=== PATIENT | female | born 1980 | race American Indian/Alaskan Native ===

== ENCOUNTER 2016-11-22 17:22 | Emergency (ER) | payer OTHER ==
[2016-11-22] MEDS ORDERED: FLEXERIL PO ONE (19:34)
[2016-11-22] MEDS ORDERED: TORADOL IM ONE (19:34)
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
[2016-11-22 20:49] VITALS: BP 119/82
== END 2016-11-22 20:48 | disposition home or self-care (01) ==
LOC: ED 17:22
DX: S46.912A Strain of unspecified muscle, fascia and tendon at shoulder and upper arm level, left arm, initial encounter (principal); V89.2XXA Person injured in unspecified motor-vehicle accident, traffic, initial encounter; Y93.89 Activity, other specified; Y99.9 Unspecified external cause status; Y92.410 Unspecified street and highway as the place of occurrence of the external cause
CPT/HCPCS: 96372; 99282; J1885

== ENCOUNTER 2018-03-11 08:23 | Emergency (ER) | payer OTHER ==
[2018-03-11 08:39] VITALS: BP 121/74
--- NOTE | 2018-03-11 09:16 | XRay Report ---
LEFT ANKLE, 3 views: History: left ankle pain, trauma. Bone mineralization is normal. No acute osseous abnormality or joint pathology is identified. The soft tissues are unremarkable. IMPRESSION: Normal study.
--- NOTE | 2018-03-11 10:28 | Emergency Department Report ---
ED Extremity Problem HPI - General Chief complaint: Extremity Injury, Lower Stated complaint: LFT ANKLE PAIN Time Seen by Provider: 03/11/18 09:50 Source: patient Mode of arrival: Wheelchair Limitations: No Limitations - History of Present Illness Initial comments: She is a 38-year-old female who was running at work and came down on her left ankle wrong and felt intense pain. Patient says the pain is a 10 severity is worse when she tries to bear weight and move the ankle. She feels some lateral swelling. Patient here for evaluation. Patient did not hear a popping sound Severity scale (0 -10): 7 Quality: aching Consistency: constant - Related Data Previous Rx's Medication Instructions Recorded Last Taken Type Cyclobenzaprine [Flexeril 10 MG 10 mg PO QHS #24 tablet 11/22/16 Unknown Rx TAB] Ibuprofen [Motrin] 800 mg PO Q8HR PRN #30 tablet 11/22/16 Unknown Rx HYDROcodone/APAP 5-325 [[place] 1 each PO Q6HR PRN #15 tablet 03/11/18 Unknown Rx 5/325] Ibuprofen [Motrin] 600 mg PO Q8H PRN #20 tablet 03/11/18 Unknown Rx Allergies Allergy/AdvReac Type Severity Reaction Status Date / Time No Known Allergies Allergy Unverified 07/10/13 13:38 ED Review of Systems ROS: Stated complaint: LFT ANKLE PAIN Other details as noted in HPI Comment: All other systems reviewed and negative ED Past Medical Hx - Past Medical History Previous Medical History?: No - Surgical History Past Surgical History?: No - Social History Smoking Status: Never Smoker Substance Use Type: None - Medications Home Medications: Home Medications Medication Instructions Recorded Confirmed Last Taken Type Cyclobenzaprine [Flexeril 10 MG 10 mg PO QHS #24 tablet 11/22/16 Unknown Rx TAB] Ibuprofen [Motrin] 800 mg PO Q8HR PRN #30 tablet 11/22/16 Unknown Rx HYDROcodone/APAP 5-325 [[place] 1 each PO Q6HR PRN #15 tablet 03/11/18 Unknown Rx 5/325] Ibuprofen [Motrin] 600 mg PO Q8H PRN #20 tablet 03/11/18 Unknown Rx ED Physical Exam - General Limitations: No Limitations General appearance: alert, in no apparent distress - Head Head exam: Present: atraumatic, normocephalic - Eye Eye exam: Present: normal appearance - ENT ENT exam: Present: mucous membranes moist - Neck Neck exam: Present: normal inspection - Respiratory Respiratory exam: Present: normal lung sounds bilaterally. Absent: respiratory distress, wheezes, rales, rhonchi - Cardiovascular Cardiovascular Exam: Present: regular rate, normal rhythm. Absent: systolic murmur, diastolic murmur, rubs, gallop - GI/Abdominal GI/Abdominal exam: Present: soft, normal bowel sounds. Absent: distended, tenderness, guarding - Extremities Exam Extremities exam: Present: normal inspection, tenderness (she has tenderness to the lateral malleolus at the left lower extremity), joint swelling. Absent: full ROM - Back Exam Back exam: Present: normal inspection - Neurological Exam Neurological exam: Present: alert, oriented X3 - Psychiatric Psychiatric exam: Present: normal affect, normal mood - Skin Skin exam: Present: warm, dry, intact, normal color. Absent: rash ED Course Vital Signs 03/11/18 08:33 Temperature 98.6 F Pulse Rate 67 Respiratory 16 Rate Blood Pressure 121/74 O2 Sat by Pulse 100 Oximetry ED Medical Decision Making - Radiology Data X-ray left ankle shows no acute bony abnormality. There is some mild soft tissue swelling present. - Medical Decision Making Patient does appear to have had a ankle sprain. Patient will be placed in an Aircast with Suraj wrap. Crutches will be given. Patient given information on rice therapy he'll be discharged home with pain meds and follow up with orthopedics. Critical care attestation.: If time is entered above; I have spent that time in minutes in the direct care of this critically ill patient, excluding procedure time. ED Disposition Clinical Impression: Ankle sprain Qualifiers: Encounter type: initial encounter Involved ligament of ankle: unspecified ligament Laterality: left Qualified Code(s): S93.402A - Sprain of unspecified ligament of left ankle, initial encounter Disposition: - TO HOME OR SELFCARE Is pt being admited?: No Does the pt Need Aspirin: No Condition: Stable Instructions: Ankle Sprain (ED), RICE Therapy (ED) Referrals: KRISH WOLFF MD [Staff Physician] - 3-5 Days Forms: Work/School Release Form(ED) Time of Disposition: 10:29
[2018-03-11] MEDS ORDERED: MOTRIN PO ONE (10:30)
[2018-03-11] MEDS ORDERED: NORCO 5/325 PO ONE (10:30)
== END 2018-03-11 10:52 | disposition home or self-care (01) ==
LOC: ED 08:23
DX: S93.402A Sprain of unspecified ligament of left ankle, initial encounter (principal); X50.1XXA Overexertion from prolonged static or awkward postures, initial encounter; Y93.02 Activity, running; Y99.0 Civilian activity done for income or pay; Y92.69 Other specified industrial and construction area as the place of occurrence of the external cause